=== PATIENT | female | born 1985 | race Caucasian/White ===

== ENCOUNTER 2017-08-01 13:31 | Emergency (ER) | payer SELFPAY ==
--- NOTE | 2017-08-01 19:14 | RAD ---
LEFT ANKLE THREE VIEWS: 08/01/17 While there is a small bony density near the tip of the lateral malleolus, it is rather smooth and t he amount of overlying soft tissue swelling is minimal. This suggests this is more likely old than n ew. No obvious acute fractures were seen. The ankle joint is normal in width. A tiny calcaneal spur was noted. IMPRESSION: No acute findings. POS: HOME
== END 2017-08-01 14:49 | disposition home or self-care (01) ==
LOC: BURERS 13:31
DX: S93.402A Sprain of unspecified ligament of left ankle, initial encounter (principal); F17.200 Nicotine dependence, unspecified, uncomplicated; X50.1XXA Overexertion from prolonged static or awkward postures, initial encounter

== ENCOUNTER 2018-01-05 13:39 | Emergency (ER) | payer SELFPAY ==
[2018-01-05] MEDS ORDERED: Ketorolac Tromethamine 30 MG/ML VIAL ONE ×2 (14:03→14:09)
[2018-01-05] MEDS ORDERED: Metoclopramide HCl 10 MG/2 ML VIAL ONE (14:03)
[2018-01-05] MEDS ORDERED: diphenhydrAMINE 50 MG/ML VIAL ONE (14:04)
[2018-01-05 14:08] LABS: #Basophils 0.1 thou/uL (0.0-0.2); #Eosinphils 0.3 thou/uL (0.0-0.7); #Lymphocytes 2.6 thou/uL (1.20-3.40); #Monocytes 0.4 thou/uL (0.11-0.59); #Neutrophils 5.9 thou/uL (1.40-6.50); %Eosinophils 2.9 % (0.0-10.0); %Lymphocytes 28.2 % (21.0-51.0); %Monocytes 3.8 % (0.0-10.0); %Neutrophils 64.1 % (42.0-75.0); Hemoglobin 16.1 g/dL (12.0-16.0); Mean Corpuscular HGB CONC 34.3 g/dL (32.0-36.0); Mean Corpuscular Volume 93.4 fl (81.0-99.0); Mean Platelet Volume 8.1 fL (7.4-10.4); Platelet Count 264 thou/uL (130-400); RBC Distribution Width 12.8 % (11.5-14.5); Red Blood Cell (RBC) Count 5.04 mill/uL (4.20-5.40); White Blood Cell (WBC) Count 9.2 thou/uL (4.8-10.8)
[2018-01-05] MEDS ORDERED: diphenhydrAMINE 12.5 MG/5 ML UDCUP ONE (14:08)
[2018-01-05 14:22] LABS: Pregnancy Test - Urine (BHCG) Negative (Negative); Specific Gravity 1.017 (1.002-1.036)
[2018-01-05 14:23] LABS: ALT (SGPT) 14 U/L (8-55); AST (SGOT) 18 U/L (5-34); Albumin 4.2 g/dL (3.5-5.0); Alkaline Phosphatase 68 U/L (40-150); Anion Gap 13 mmol/L (10-20); BUN (Urea Nitrogen) 7 mg/dL (7.0-18.7); Bilirubin, Total 0.3 mg/dL (0.2-1.2); Calc. Creatinine Clearance 0 mL/min (70-130); Calcium 9.5 mg/dL (7.8-10.44); Carbon Dioxide 24 mmol/L (22-29); Chloride 107 mmol/L (98-107); Estimated GFR-MDRD Greater than 90; Globulin 3.3 g/dL (2.4-3.5); Glucose 95 mg/dL (70-105); Potassium 3.9 mmol/L (3.5-5.1); Protein, Total 7.5 g/dL (6.0-8.3); Sodium 140 mmol/L (136-145)
[2018-01-05 14:23] LABS: Pregu Control Background? CLEAR/WHITE (CLR/WHITE); Pregu Control Bar Appear? YES (CONTROL BAR)
--- NOTE | 2018-01-05 18:03 | CT ---
CT BRAIN WITHOUT CONTRAST: Date: 01-05-18 FINDINGS: A noncontrast CT shows normal sized ventricles with no shift. No intracranial bleeding or extraaxial hematoma was seen. There is no sign of mass, edema, or stroke. The calvarium appears normal. IMPRESSION: No acute intracranial finding. POS: HOME
== END 2018-01-05 15:00 | disposition home or self-care (01) ==
LOC: BURERS 13:39
DX: R51 Headache (principal); F17.210 Nicotine dependence, cigarettes, uncomplicated
CPT/HCPCS: 70450; 80053; 81025; 85025; 96365; 96375; J1200; J1885; J2765

== ENCOUNTER 2019-07-29 19:17 | Emergency (ER) | payer SELFPAY ==
[2019-07-29] MEDS ORDERED: hydrOXYzine 25 MG TAB ONE (19:31)
[2019-07-29] MEDS ORDERED: Dexamethasone 4 MG TAB ONE (19:31)
== END 2019-07-29 19:40 | disposition home or self-care (01) ==
LOC: BURERS 19:17
DX: B86 Scabies (principal); F17.210 Nicotine dependence, cigarettes, uncomplicated
CPT/HCPCS: 99282; J8540